=== PATIENT | male | born 1955 | race Caucasian/White ===

== ENCOUNTER → 2024-08-31 13:46 | Outpatient (REF) | payer MEDICARE, SELFPAY | LOC: HWRCS 13:46 | PROVIDERS: ATTENDING PHYSICIAN Internal Medicine Cardiovascular Disease; FAMILY PHYSICIAN Internal Medicine | DX: I34.0 Nonrheumatic mitral (valve) insufficiency (principal) | CPT/HCPCS: 93306 ==

== ENCOUNTER → 2024-10-25 12:14 | Outpatient (REF) | payer MEDICARE, SELFPAY | LOC: RAD 12:14 | PROVIDERS: ATTENDING PHYSICIAN Orthopaedic Surgery; FAMILY PHYSICIAN Internal Medicine | DX: M19.011 Primary osteoarthritis, right shoulder (principal) | CPT/HCPCS: 73200 ==